=== PATIENT | female | born 1960 | race Caucasian/White ===

== ENCOUNTER 2017-06-08 16:24 | Outpatient (CLI) ==
--- NOTE | 2017-06-08 16:50 | DI ---
EXAM: Four views of the left ribs and a frontal view the chest HISTORY: Chest wall pain TECHNIQUE: AP, oblique views of the left ribs and a frontal view of the chest were obtained. FINDINGS: No acute left-sided rib fractures are identified. The heart is normal size. Lungs are clear. There is no pleural separation. IMPRESSION: No evidence of left-sided rib fracture. No active cardiopulmonary disease.
--- NOTE | 2017-06-08 16:52 | DI ---
EXAM: THORACIC SPINE HISTORY: Chest wall pain FINDINGS / IMPRESSION: Thoracic spine three views. No comparison. There is mild scoliosis convex to the right. Anterior and lateral osteophytic spurring of the spine diffusely, some levels bridging. There is diffuse mild degenerative endplate disease. No acute fracture or significant loss of vertebral body height is seen at the thoracic level. Cannot exclude anterior spondylolisthesis of C7 on T1 possibly related to facet arthropathy. The re gion is not clearly seen.
== END 2017-06-08 16:25 | disposition home or self-care (01) ==
LOC: RAD 16:24
PROVIDERS: ATTEND Family Medicine
DX: R07.89 Other chest pain (principal)